=== PATIENT | female | born 1975 | race Caucasian/White ===

== ENCOUNTER 2019-01-31 13:06 | Inpatient (IN) | payer OTHER ==
[~2019-01-31] VITALS: Ht 144.8 cm; Wt 65.2 kg
[2019-01-31] MEDS ORDERED: KETOROLAC 30 MG INJ IV STA (14:31)
[2019-01-31] MEDS ORDERED: SOD CHLORIDE 0.9% 1,000 ML IV STA (14:31)
[2019-01-31] MEDS: ONDANSETRON 4 MG INJ IV STA ×2 (14:50→15:01)
[2019-01-31] MEDS: morphine 2 MG INJ IV STA ×2 (14:50→15:01)
--- NOTE | 2019-01-31 15:29 | ERD ---
ER Documentation Chief Complaint Chief Complaint LT EAR PAIN X 1 WEEK HPI 43-year-old female presents with complaint of left ear pain for the past week. States that she was just at another doctor on Friday and was diagnosed with an infection and given ofloxacin as well as amoxicillin. States she is taking medicine as prescribed. States that the pain is gotten worse since then and there is additional swelling behind and in front of the ear. Says the pain is currently 8 out of 10. Denies any fevers, decreased hearing, headache, tinnitus, vertigo, discharge from the ear. ROS All systems reviewed and are negative except as per history of present illness. Allergies Allergies: Coded Allergies: No Known Allergy (Unverified , 01/31/19) PMhx/Soc Medical and Surgical Hx: pt denies Medical Hx, pt denies Surgical Hx Hx Alcohol Use: No Hx Substance Use: No Hx Tobacco Use: No Smoking Status: Never smoker FmHx Family History: No diabetes, No coronary disease, No other Physical Exam Vitals Vital Signs Date Temp Pulse Resp B/P (MAP) Pulse Ox O2 O2 Flow FiO2 Time Delivery Rate 01/31/19 98.6 64 18 136/64 100 13:11 (88) Physical Exam Const: No acute distress Head: Atraumatic Eyes: Normal Conjunctiva ENT: Left ear canal is edematous. There is tenderness to palpation with some edema noted over the pre-and postauricular area. There is mastoid tenderness to palpation. The auricle is slightly erythematous and tender to palpation. Neck: Full range of motion. No meningismus. Resp: Clear to auscultation bilaterally Cardio: Regular rate and rhythm, no murmurs Abd: Soft, non tender, non distended. Normal bowel sounds Skin: No petechiae or rashes Back: No midline or flank tenderness Ext: No cyanosis, or edema Neur: Awake and alert Psych: Normal Mood and Affect Result Diagram: 01/31/19 1446 01/31/19 1446 Results 24 hrs Laboratory Tests Test 01/31/19 14:45 01/31/19 14:46 POC Beta HCG, Qualitative NEGATIVE White Blood Count 7.8 10^3/ul Red Blood Count 4.83 10^6/ul Hemoglobin 13.0 g/dl Hematocrit 40.8 % Mean Corpuscular Volume 84.5 fl Mean Corpuscular Hemoglobin 26.9 pg Mean Corpuscular Hemoglobin Concent 31.9 g/dl Red Cell Distribution Width 13.1 % Platelet Count 287 10^3/UL Mean Platelet Volume 10.5 fl Immature Granulocytes % 0.300 % Neutrophils % 53.8 % Lymphocytes % 36.9 % Monocytes % 5.8 % Eosinophils % 2.8 % Basophils % 0.4 % Nucleated Red Blood Cells % 0.0 /100WBC Immature Granulocytes # 0.020 10^3/ul Neutrophils # 4.2 10^3/ul Lymphocytes # 2.9 10^3/ul Monocytes # 0.5 10^3/ul Eosinophils # 0.2 10^3/ul Basophils # 0.0 10^3/ul Nucleated Red Blood Cells # 0.0 10^3/ul Sodium Level 144 mmol/L Potassium Level 4.6 mmol/L Chloride Level 106 mmol/L Carbon Dioxide Level 30 mmol/L Anion Gap 8 Blood Urea Nitrogen 8 mg/dl Creatinine 0.46 mg/dl Est Glomerular Filtrat Rate mL/min > 60 mL/min Glucose Level 94 mg/dl Calcium Level 9.5 mg/dl Total Bilirubin 0.9 mg/dl Direct Bilirubin 0.00 mg/dl Indirect Bilirubin 0.9 mg/dl Aspartate Amino Transf (AST/SGOT) 47 IU/L Alanine Aminotransferase (ALT/SGPT) 102 IU/L Alkaline Phosphatase 114 IU/L Total Protein 8.1 g/dl Albumin 4.6 g/dl Globulin 3.50 g/dl Albumin/Globulin Ratio 1.31 Current Medications Medications Dose Sig/Porsha Start Time Status Last (Trade) Ordered Route PRN Stop Time Admin Dose Reason Admin Sodium 1,000 ml @ Q1H STAT 01/31/19 DC 01/31/19 Chloride 1,000 mls/hr IV 14:31 01/31/19 14:50 15:30 Morphine 2 mg ONCE STAT 01/31/19 DC Sulfate IV 14:31 01/31/19 (morphine) 14:34 Ondansetron 4 mg ONCE STAT 01/31/19 DC HCl (Zofran IV 14:31 01/31/19 Inj) 14:34 Ketorolac 30 mg ONCE STAT 01/31/19 DC 01/31/19 Tromethamine IV 14:31 01/31/19 14:57 (Toradol) 14:34 IV Flush 10 ml STK-MED 01/31/19 DC (NS 10 ml) ONCE .ROUTE 16:55 01/31/19 16:56 Sodium 100 ml @ ud STK-MED 01/31/19 DC Chloride ONCE .ROUTE 16:55 01/31/19 16:56 Iohexol 150 ml STK-MED 01/31/19 DC (Omnipaque ONCE .ROUTE 16:55 01/31/19 300mg/ ml) 16:56 Procedures/MDM DIAGNOSTIC IMAGING REPORT Patient: JAYMIE JIMENEZ : 1975 Age: 43 Sex: F MR #: [id number] DOS: 01/31/19 1435 Ordering MD: GEORGE KLINE Location: [facility] Room/Bed: PROCEDURE: CT temporal bones with contrast. CLINICAL INDICATION: Left-sided pain and swelling. TECHNIQUE: CT of the temporal bones was performed on a multi-detector high- resolution CT scanner. Contiguous axial images were obtained after the administration of 100 cc Omnipaque-300 intravenous contrast. Coronal and sa gittal reformatted images were obtained. Images were reviewed on a PACS workstation. DICOM images are available. One or more of the following dose reduction techniques were used: - Automated exposure control. - Adjustment of the mA and/or kV according to patient size. - Use of iterative reconstruction technique. Exam CTD/vol = 52.37 mGy. Total exam DLP = 500.92 mGy-cm. COMPARISON: None. FINDINGS: Right side: The mastoid air cells are well formed and aerated. The external auditory canal is also well formed and grossly free of soft tissue. Middle ear structures are unremarkable. The ossicles are intact. Inner ear structures are grossly well formed. The facial nerve canal is seen in its extent and is unremarkable. The internal auditory canal is also unremarkable. No lytic or destructive lesions are evident. Left side: There is increased edema along the external auditory canal. There is no abnormal fluid collection identified. The mastoid air cells are well deve loped and moderately opacified. There is mild thickening of the tympanic membrane. There is soft tissue within the mastoid antrum and mesotympanum. There is soft tissue within Prussak's space, sinus tympani and facial nerve recess. There is mucosal opacification of the round window niche. There is no osseous erosion or destruction. The ossicles and scutum are intact. The bony septa of the mastoids are intact. There inner ear structures are unremarkable. The internal auditory canal is unremarkable. IMPRESSION: Moderate inflammatory changes of the left external auditory canal, middle ear clefts and mastoids. Clinically correlate for otomastoiditis. There is no definite bony erosion or destruction of the ossicles. .John Hanna MD, MD Date Time Electronically viewed and signed by .John Hanna MD, on 01/31/2019 17:25 .T/ CC: GEORGE KLINE [id number] MDM: CT results are positive for possible mastoiditis. Given the tenderness to palpation and edema in the mastoid area this is definitely a clinical concern. I discussed the case with my supervising physician and we decided that the best course would be to admit patient for intravenous antibiotics. Departure Diagnosis: Primary Impression: Mastoiditis Laterality: left Qualified Codes: H70.92 - Unspecified mastoiditis, left ear Condition: Serious GEORGE KLINE Jan 31, 2019 15:29
[2019-01-31] MEDS ORDERED: SOD CHLORIDE 0.9% 100 ML ONE (16:55)
[2019-01-31] MEDS ORDERED: IOHEXOL 300MG/ML 150 ML BTL ONE (16:55)
[2019-01-31] MEDS ORDERED: ACETAMINOPHEN 325 MG TAB PO PRN ×2 (19:00→19:30)
[2019-01-31] MEDS ORDERED: ONDANSETRON 4 MG INJ IV PRN ×2 (19:00→19:30)
[2019-01-31] MEDS ORDERED: HYDROCODONE/APAP (5/325) TAB PO PRN (19:30)
[2019-01-31] MEDS ORDERED: LEVOFLOXACIN 750MG/D5W (PMX) 150 ML IVPB SCH (19:30)
[2019-01-31] MEDS ORDERED: NACL 0.9% 3 ML SYG IV SCH (19:30)
[2019-01-31] MEDS ORDERED: morphine 2 MG INJ IV PRN (19:30)
[2019-01-31] MEDS: CIPROFLOXACIN HCL OTIC DROP 0.25 ML LEFT EAR SCH (20:00)
--- NOTE | 2019-01-31 20:21 | HP ---
Date/Time of Note Date/Time of Note DATE: 01/31/19 TIME: 20:15 Assessment/Plan VTE Prophylaxis SCD applied (from Nsg): Yes Pharmacological prophylaxis: NA/contraindicated Pharm contraindication: low risk/ambulating Lines/Catheters IV Catheter Type (from Nrsg): Peripheral IV Assessment/Plan Assessment/Plan 43 yo woman no PMH presents with possible mastoiditis #Otomastoiditis - 2 days is not very long to call this true failure of outpatient antibiotics. However patient does complain that pain worsened over this time. - CT shows possible mastoiditis - Concern for drug resistant organism would mostly be pseudomonas. Will start IV meropenem. - Consult ENT in AM. DVT: SCDs GI: None Result Diagram: 01/31/19 1446 01/31/19 1446 HPI/ROS Admit Date/Time Admit Date/Time 31 January 2019 Hx of Present Illness Ms. Alarcon is a 43 yo woman without PMH who presents with ear pain. She was in her usual state of health until Friday morning (2 days [employer]). That morning she had acute L ear pain and slight hearing loss. She went to an urgent care and was diagnosed with an infection and given ofloxacin drops as well as oral amoxicillin. States she is taking medicine as prescribed. Since yesterday, says that the pain is gotten worse since then and there is additional swelling behind and in front of the ear. In the ED she was febrile, vitals normal. Labs unremarkable with no leukocytosis. CT max/face was done showing L external ear inflammation and possible otomastoiditis. ROS Denies any fevers, headache, tinnitus, vertigo, discharge from the ear. PMH/Family/Social Past Medical History None Medications Current Medications IV Flush (NS 3 ml) 3 ml PER PROTOCOL IV ; Start 01/31/19 at 19:30 Ondansetron HCl (Zofran Inj) 4 mg Q6H PRN IV NAUSEA/VOMITING; Start 01/31/19 at 19:30 Acetaminophen (Tylenol Tab) 650 mg Q6H PRN PO .PAIN 1-3 OR TEMP; Start 01/31/19 at 19:30 Acetaminophen/ Hydrocodone Bitart ([place] (5/325)) 1 tab Q6H PRN PO .MOD PAIN 4- 6; Start 01/31/19 at 19:30 Acetaminophen/ Hydrocodone Bitart ([place] (5/325)) 2 tab Q6H PRN PO .SEVERE PAIN 7-10; Start 01/31/19 at 19:30 Morphine Sulfate (morphine) 2 mg Q4H PRN IV .SEVERE PAIN 7-10; Start 01/31/19 at 19:30 Enoxaparin Sodium (Lovenox) 40 mg DAILY SC ; Start 02/01/19 at 09:00 Ciprofloxacin HCl (Ciprofloxacin HCl Otic) 2 drop BID LEFT EAR Last administered on 01/31/19at 20:00; Admin Dose 2 DROP; Start 01/31/19 at 21:00 Meropenem/Sodium Chloride 50 ml @ 100 mls/hr Q8 IVPB ; Start 01/31/19 at 22:00 Coded Allergies: No Known Allergy (Unverified , 01/31/19) Past Surgical History Social History Alcohol Use: none Smoking Status: Never smoker Drug Use: none Exam/Review of Systems Vital Signs Vitals Vital Signs Date Temp Pulse Resp B/P (MAP) Pulse Ox O2 O2 Flow FiO2 Time Delivery Rate 01/31/19 98.6 64 18 136/64 100 13:11 (88) Exam Exam Gen: Obese woman well appearing no acute distress Eyes: PERRL, no icterus HEENT: Moist mucous membranes, clear oropharynx. R ear without erythema or pain. L pinna nontender, I actually see no significant erythema or swelling the canal and cannot visualize the TM. There is slight mastoid tenderness posteriorly and maxilla tenderness anteriorly. Neck: Supple, no lymphadenopathy Card: Regular rate and rhythm, no murmurs Pulm: Clear to auscultation bilaterally Abd: Soft, nontender, nondistended. Ext: No cyanosis/clubbing/edema Skin: warm, dry, well perfused. ERLINDA DELUCA MD Jan 31, 2019 20:21
[2019-01-31 21:30] VITALS: BP 119/70; PULSE 60; RESP 19
[2019-01-31] MEDS: HYDROCODONE/APAP (5/325) TAB PO PRN (21:38)
[2019-01-31] MEDS: MEROPENEM 1 GM/50ML(PMX) 50 ML IVPB SCH (22:16)
[2019-01-31 22:45] VITALS: Ht 144.8 cm; Wt 65.2 kg
[2019-02-01 02:00] VITALS: BP 108/62; PULSE 72; RESP 18
[2019-02-01] MEDS: MEROPENEM 1 GM/50ML(PMX) 50 ML IVPB SCH ×3 (05:35→21:45)
[2019-02-01 07:58] VITALS: BP 99/62; PULSE 60; RESP 20
[2019-02-01] MEDS: CIPROFLOXACIN HCL OTIC DROP 0.25 ML LEFT EAR SCH ×2 (09:12→21:02)
[2019-02-01] MEDS: ENOXAPARIN 40 MG/0.4 ML SYG SC SCH (09:14)
--- NOTE | 2019-02-01 12:09 | PN ---
Date/Time of Note Date/Time of Note DATE: 02/01/19 TIME: 12:05 Assessment/Plan VTE Prophylaxis Risk score (from Ns)>0 risk: 2 SCD applied (from Ns): Yes Pharmacological prophylaxis: NA/contraindicated Pharm contraindication: low risk/ambulating Lines/Catheters IV Catheter Type (from [facility]): Peripheral IV Assessment/Plan Hospital Course SUBJECTIVE: Lying in bed. With improved pain in her left ear. Still having mild hearing loss on left side. OBJECTIVE: Vital signs-see below PHYSICAL EXAM: Constitutional: Adequately built,not in acute distress. HEENT: Head atraumatic and normocephalic. Eyes: Extraocular muscles intact. Anicteric sclerae. Pupils equal bilaterally, reactive to light.Ear: no erythema [place]/TM not visualized. Slight hearing loss to L ear.Tender on L ear canal. NECK: Supple without lymph node. CHEST: Clear and good breath sounds equally. No wheezing. No rhonchi. HEART: S1, S2. Regular rate and rhythm. ABDOMEN: Soft/non tender with no rebound tenderness. Bowel sounds were present. EXTREMITIES: No cyanosis, clubbing or edema. NEUROLOGIC: Alert and oriented x3. No focal deficit. No sensory deficit. PSYCHOSOCIAL: No signs of depression. INTEGUMENTARY: No open wounds. ASSESSMENT AND PLAN:43 yo woman no PMH presents with possible mastoiditis Otomastoiditis -Symptoms improving on IV antimicrobials -Left a message to ENT and set up outpatient follow-up onFebruary 08 8:30 AM. Case management to initiate authorization. Meanwhile, we will also try obtaining inpatient ENT follow-up=> and callback from ENT MD Obesity with BMI 31.1 -Weight reduction advised DVT: SCDs GI: None Disposition: Overall patient with improvement in clinical symptoms. Most likely she can be followed up as outpatient in ENT clinic. We will continue patient on antimicrobial with possible transition to p.o. tomorrow and anticipate discharge. Patient was seen in collaboration with Dr. Thompson. Result Diagram: 02/01/19 0513 02/01/19 0530 Results 24hrs Laboratory Tests Test 01/31/19 14:45 01/31/19 14:46 02/01/19 05:13 02/01/19 05:30 POC Beta HCG, NEGATIVE Qualitative White Blood Count 7.8 5.5 # Red Blood Count 4.83 4.22 Hemoglobin 13.0 11.5 L Hematocrit 40.8 36.3 L Mean Corpuscular Volume 84.5 86.0 Mean Corpuscular 26.9 L 27.3 L Hemoglobin Mean Corpuscular 31.9 L 31.7 L Hemoglobin Concent Red Cell Distribution 13.1 13.0 Width Platelet Count 287 235 Mean Platelet Volume 10.5 H 10.5 H Immature Granulocytes % 0.300 0.200 Neutrophils % 53.8 29.1 L Lymphocytes % 36.9 57.6 H Monocytes % 5.8 7.0 Eosinophils % 2.8 5.6 Basophils % 0.4 0.5 Nucleated Red Blood 0.0 0.0 Cells % Immature Granulocytes # 0.020 0.010 Neutrophils # 4.2 1.6 Lymphocytes # 2.9 3.2 H Monocytes # 0.5 0.4 Eosinophils # 0.2 0.3 Basophils # 0.0 0.0 Nucleated Red Blood 0.0 0.0 Cells # Sodium Level 144 141 Potassium Level 4.6 4.5 Chloride Level 106 109 Carbon Dioxide Level 30 28 Anion Gap 8 4 L Blood Urea Nitrogen 8 10 Creatinine 0.46 0.51 Est Glomerular Filtrat > 60 > 60 Rate mL/min Glucose Level 94 95 Calcium Level 9.5 8.8 Total Bilirubin 0.9 Direct Bilirubin 0.00 Indirect Bilirubin 0.9 Aspartate Amino 47 H Transf (AST/SGOT) Alanine 102 H Aminotransferase (ALT/SG PT) Alkaline Phosphatase 114 Total Protein 8.1 Albumin 4.6 Globulin 3.50 H Albumin/Globulin Ratio 1.31 Magnesium Level 2.1 Exam/Review of Systems Exam Vitals Vital Signs Date Temp Pulse Resp B/P (MAP) Pulse Ox O2 O2 Flow FiO2 Time Delivery Rate 02/01/19 98.7 60 20 99/62 (74) 100 Room Air 07:58 Intake and Output 01/31/19 01/31/19 02/01/19 1414:59 22:59 06:59 IntakeIntake Total 1480 ml 50 ml BalanceBalance 1480 ml 50 ml Results Results 24hrs Laboratory Tests Test 01/31/19 14:45 01/31/19 14:46 02/01/19 05:13 02/01/19 05:30 POC Beta HCG, NEGATIVE Qualitative White Blood Count 7.8 5.5 # Red Blood Count 4.83 4.22 Hemoglobin 13.0 11.5 L Hematocrit 40.8 36.3 L Mean Corpuscular Volume 84.5 86.0 Mean Corpuscular 26.9 L 27.3 L Hemoglobin Mean Corpuscular 31.9 L 31.7 L Hemoglobin Concent Red Cell Distribution 13.1 13.0 Width Platelet Count 287 235 Mean Platelet Volume 10.5 H 10.5 H Immature Granulocytes % 0.300 0.200 Neutrophils % 53.8 29.1 L Lymphocytes % 36.9 57.6 H Monocytes % 5.8 7.0 Eosinophils % 2.8 5.6 Basophils % 0.4 0.5 Nucleated Red Blood 0.0 0.0 Cells % Immature Granulocytes # 0.020 0.010 Neutrophils # 4.2 1.6 Lymphocytes # 2.9 3.2 H Monocytes # 0.5 0.4 Eosinophils # 0.2 0.3 Basophils # 0.0 0.0 Nucleated Red Blood 0.0 0.0 Cells # Sodium Level 144 141 Potassium Level 4.6 4.5 Chloride Level 106 109 Carbon Dioxide Level 30 28 Anion Gap 8 4 L Blood Urea Nitrogen 8 10 Creatinine 0.46 0.51 Est Glomerular Filtrat > 60 > 60 Rate mL/min Glucose Level 94 95 Calcium Level 9.5 8.8 Total Bilirubin 0.9 Direct Bilirubin 0.00 Indirect Bilirubin 0.9 Aspartate Amino 47 H Transf (AST/SGOT) Alanine 102 H Aminotransferase (ALT/SG PT) Alkaline Phosphatase 114 Total Protein 8.1 Albumin 4.6 Globulin 3.50 H Albumin/Globulin Ratio 1.31 Magnesium Level 2.1 Medications Medication Current Medications IV Flush (NS 3 ml) 3 ml PER PROTOCOL IV ; Start 01/31/19 at 19:30 Ondansetron HCl (Zofran Inj) 4 mg Q6H PRN IV NAUSEA/VOMITING; Start 01/31/19 at 19:30 Acetaminophen (Tylenol Tab) 650 mg Q6H PRN PO .PAIN 1-3 OR TEMP Last administered on 02/01/19at 05:39; Admin Dose 650 MG; Start 01/31/19 at 19:30 Acetaminophen/ Hydrocodone Bitart ([place] (5/325)) 1 tab Q6H PRN PO .MOD PAIN 4- 6 Last administered on 01/31/19at 21:38; Admin Dose 1 TAB; Start 01/31/19 at 19:30 Acetaminophen/ Hydrocodone Bitart ([place] (5/325)) 2 tab Q6H PRN PO .SEVERE PAIN 7-10; Start 01/31/19 at 19:30 Morphine Sulfate (morphine) 2 mg Q4H PRN IV .SEVERE PAIN 7-10; Start 01/31/19 at 19:30 Enoxaparin Sodium (Lovenox) 40 mg DAILY SC Last administered on 02/01/19at 09:14; Admin Dose 40 MG; Start 02/01/19 at 09:00 Ciprofloxacin HCl (Ciprofloxacin HCl Otic) 2 drop BID LEFT EAR Last administered on 02/01/19at 09:12; Admin Dose 2 DROP; Start 01/31/19 at 21:00 Meropenem/Sodium Chloride 50 ml @ 100 mls/hr Q8 IVPB Last administered on 02/01/19at 05:35; Admin Dose 100 MLS/HR; Start 01/31/19 at 22:00 ANA HERNÁNDEZ NP Feb 01, 2019 12:09
[2019-02-01] MEDS: HYDROCODONE/APAP (5/325) TAB PO PRN (13:51)
[2019-02-01 14:24] VITALS: BP 128/59; PULSE 65; RESP 18
[2019-02-01 20:02] VITALS: BP 136/72; PULSE 55; RESP 18
[2019-02-01 22:30] VITALS: PULSE 62
[2019-02-02 02:12] VITALS: BP 124/67; PULSE 55; RESP 18
[2019-02-02] MEDS: MEROPENEM 1 GM/50ML(PMX) 50 ML IVPB SCH (05:47)
[2019-02-02 07:56] VITALS: BP 110/53; PULSE 51; RESP 18
[2019-02-02] MEDS: CIPROFLOXACIN HCL OTIC DROP 0.25 ML LEFT EAR SCH (09:02)
[2019-02-02] MEDS: ENOXAPARIN 40 MG/0.4 ML SYG SC SCH (09:07)
--- NOTE | 2019-02-02 10:41 | PDOCDIS ---
Discharge Instructions CONDITION [id number] Patient Condition: [id number] Stable HOME CARE INSTRUCTIONS: [id number] Diet Instructions: [id number] Regular FOLLOW UP/APPOINTMENTS Follow-up Plan Please see (ENT) today after discharge. If cannot see you today, you have insurance authorization to see another ENT doctor in 2 weeks for which you need to call and make an appointment. Grant Larios MD Specialty Ear Nose Throat Comments Office Address [facility] [place] [address] [address] [facility] [address] [place] [address] Office Follow-up with primary care physician in 1 week ANA HERNÁNDEZ NP Feb 02, 2019 10:41
[2019-02-02] MEDS ORDERED: AMOX1TAB10 PO (10:42)
--- NOTE | 2019-02-02 10:48 | DS ---
Date/Time of Note Date/Time of Note DATE: 02/02/19 TIME: 10:44 Discharge Summary Admission/Discharge Info Admit Date/Time Feb 01, 2019 at 12:20 Discharge Date/Time Discharge Diagnosis Otomastoiditis. Obesity with BMI 31.1 Patient Condition: Stable Procedures 01/31/2019: CT temporal bones with contrast IMPRESSION: Moderate inflammatory changes of the left external auditory canal, middle ear clefts and mastoids. Clinically correlate for otomastoiditis. There is no definite bony erosion or destruction of the ossicles. Hospital Course 43 yo woman no PMH presents with left-sided ear pain, slight vision loss, found to have otomastoiditis. Patient did not respond on outpatient oral antibiotic and eardrops. Patient was given IV meropenem and she was continued on Cipro eardrops. Patient symptoms improved. I also spoke with the ENT doctor Dr. Larios who agreed to see patient today in his clinic. Patient with no further ear pain. Her hearing is much improved. After discussion with ENT doctor, we will send patient on Augmentin and patient to see ENT doctor today after discharge. Patient also has insurance authorization to see another ENT doctor in the event that if she cannot see Dr. Larios today. Patient verbalized understanding. Approximately 60-minute was spent on coordinating the discharge on this patient. Patient was seen in collaboration with [facility] Active Scripts Amoxicillin/Potassium Clav (Amox-Clav 875-125 mg Tablet) 875-125 mg Tab, 1 TAB PO BID, #20 TAB Prov:ANA HERNÁNDEZ NP 02/02/19 Follow-up Plan Please see (ENT) today after discharge. If cannot see you today, you have insurance authorization to see another ENT doctor in 2 weeks for which you need to call and make an appointment. Grant Larios MD Specialty Ear Nose Throat Comments Office Address [facility] [address], [address] [place] [address] Office Follow-up with primary care physician in 1 week Primary Care Provider Care Physician No Primary ANA HERNÁNDEZ NP Feb 02, 2019 10:48
[2019-02-02] MEDS ORDERED: NOTE (10:51)
[2019-02-02] MEDS ORDERED: MEDICAL NOTE (10:51)
== END 2019-02-02 12:00 | disposition home or self-care (01) | DRG 153 ==
LOC: FTE 13:06 → 2NE 18:59 → OBSVTOIN 02-01 12:20
PROVIDERS: ADMIT Internal Medicine; ATTEND Internal Medicine
DX: H70.92 Unspecified mastoiditis, left ear (principal)
CPT/HCPCS: 70480; 80048; 80053; 81025; 83735; 85025; 96361; 96374; G0378; J1650; J1885; J1956; J2185; J2270; J2405; J7030; Q9967